=== PATIENT | female | born 2000 | race Caucasian/White ===

== ENCOUNTER 2019-01-18 18:13 | Emergency (ER) | payer BC ==
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
== END 2019-01-18 19:51 | disposition home or self-care (01) ==
LOC: JP.ED 18:13
DX: S01.01XA Laceration without foreign body of scalp, initial encounter (principal); W22.8XXA Striking against or struck by other objects, initial encounter
CPT/HCPCS: 12001; 99282